=== PATIENT | female | born 2000 | race African-American/Black ===

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

== ENCOUNTER 2018-01-06 17:30 | Observation (INO) | payer MEDICAID ==
[~2018-01-06] VITALS: Ht 167.6 cm; Wt 50.0 kg
[~2018-01-06 17:30] MED LIST: MACR100C2 PO; METR-1 PO
[2018-01-06 17:55] VITALS: BP 107/59; PULSE 115; RESP 16; TEMP 99.3; O2SAT 100
[2018-01-06 21:48] VITALS: BP 113/61; PULSE 102; RESP 18; TEMP 100.1; O2SAT 100
[2018-01-06] MEDS ORDERED: SODIUM CHLOR 0.9% 1000 ML INJ 1,000 ML IV ONE ×2 (22:00→23:45)
[2018-01-06] MEDS ORDERED: AZITHROMYCIN PWD FOR SUSP 1 GM PACKET PO ONE (22:00)
[2018-01-06] MEDS ORDERED: cefTRIAXone INJ 1,000 MG in SODIUM CHLORIDE 0.9% INJ 100 ML IV ONE (22:00)
--- NOTE | 2018-01-06 22:02 | PD ---
HPI Chief Complaint: Bleeding Time Seen by Provider: 21:47 Travel History International Travel<30 days: No Contact w/Intl Traveler<30days: No Traveled to known affect area: No History of Present Illness HPI The patient is an 17 year old female who presents to the [facility] emergency department with a history of heavy vaginal bleeding associated with lower abdominal cramping that began yesterday. The patient is a that was diagnosed with a demise during her last evaluation in the emergency department she reports that she has an appointment scheduled with her AUDIO NARRATOR for January 15, however they were unable to move up the appointment after her evaluation on December 31 in the emergency department. She reports that she has had blood clots associated with her vaginal bleeding. She reports having lightheaded sensation. She denies having any chest pain, chest pressure, or shortness of breath. The patient was diagnosed with bacterial vaginosis and a urinary tract infection and discharged home on metronidazole and it. She reports that she did get the prescriptions filled. Her GC and chlamydia from her pelvic examination were pending at the time of her discharge. From reviewing the electronic medical record her gonorrhea testing was positive. She denies being called by the hospital regarding these results and has not been treated. On arrival the patient has a temp of 100.1 and a sinus tachycardia just above 100. She denies having any known fevers prior to arrival. She denies having any cough or congestion. She denies having any vomiting or diarrhea. She denies having dysuria, urinary frequency, or urinary urgency. Otherwise on review of systems she denies having neck pain or neurologic symptoms. [facility] Past Medical History Narrative Medical The patient's past medical history is reportedly none. The patient's OB history is significant for having an elective 2 years ago, demise diagnosed 12/31/2017. Medical History: Denies Significant Hx ?: Not : 2 Miscarriage: 1 : 1 Past Surgical History Surgical History: No Previous Surgery Social History Alcohol Use: No Tobacco Use: No Substance Use: No Allergies-Medications (Allergen,Severity, Reaction): Coded Allergies: No Known Allergies (Unverified , 12/31/17) Reported Meds & Prescriptions Reported Meds & Active Scripts Active Flagyl (Metronidazole) 500 Mg Tab 500 Mg PO BID 7 Days Macrobid (Nitrofurantoin Monoh/Nitrofur Macro) 100 Mg Cap 100 Mg PO BID 10 Days Review of Systems Except as stated in HPI: all other systems reviewed are Neg General / Constitutional: No: Fever Eyes: No: Visual changes HENT: No: Headaches Cardiovascular: No: Chest Pain or Discomfort Respiratory: No: Shortness of Breath Gastrointestinal: No: Nausea, Vomiting, Diarrhea, Abdominal Pain Genitourinary: Positive: Pelvic Pain, Vaginal Bleeding, No: Dysuria Musculoskeletal: No: Pain Skin: No Rash Neurologic: No: Weakness Psychiatric: No: Depression Endocrine: No: Polydipsia Hematologic/Lymphatic: No: Easy Bruising Physical Exam Narrative General: The patient is a well-developed well-nourished female in no acute distress. Head and Neck exam: Head is normocephalic atraumatic. Eyes: EOMI, pupils are equal round and reactive to light. Nose: Midline septum with pink mucous membranes Mouth: Dentition unremarkable. Moist mucus membranes. Posterior oropharynx is not erythematous. No tonsillar hypertrophy. Uvula midline. Airway patent. Neck: No palpable lymphadenopathy. No nuchal rigidity. No thyromegaly. Cardiovascular: Sinus tachycardia in the low 100s without murmurs, gallops, or rubs. No pulse deficit to the extremities on simultaneous auscultation and palpation of her radial artery. Lungs: Clear to auscultation bilaterally. No wheezes, rhonchi, or rales. Abdomen: Soft, with reported tenderness on palpation of the suprapubic area, no other tenderness on palpation of the other quadrants of the abdomen. No guarding, rebound, or rigidity. Normal bowel sounds are audible. No tenderness on palpation of McBurney's point. Negative Rodriges sign. Extremities: No clubbing, cyanosis, or edema. 2+ pulses in all 4 extremities. No calf tenderness on palpation peer Back: No costovertebral angle tenderness to palpation. Neurologic Exam: Grossly nonfocal. Skin Exam: No rash noted. Intact skin that is warm and dry. Data Data Last Documented VS Vital Signs Date Time Temp Pulse Resp B/P (MAP) Pulse Ox O2 Delivery O2 Flow Rate FiO2 01/06/18 23:55 98.0 105 18 126/63 (84) 100 Room Air Orders Orders Complete Blood Count With Diff (01/06/18 21:49) Basic Metabolic Panel (Bmp) (01/06/18 21:49) Beta Hcg (Quant/Titer) (01/06/18 21:49) Iv Access Insert/Monitor (01/06/18 21:49) Ecg Monitoring (01/06/18 21:49) Oximetry (01/06/18 21:49) Sodium Chlor 0.9% 1000 Ml Inj (Ns 1000 M (01/06/18 22:00) Ceftriaxone Inj (Rocephin Inj) (01/06/18 22:00) Azithromycin Powd Pack (Zithromax Powd P (01/06/18 22:00) Sodium Chlor 0.9% 1000 Ml Inj (Ns 1000 M (01/06/18 23:45) Ed Poc Ultrasound (01/06/18 ) Admit Order (Ed Use Only) (01/07/18 02:08) Labs Laboratory Tests Test 01/06/18 22:05 White Blood Count 14.9 TH/MM3 Red Blood Count 4.78 MIL/MM3 Hemoglobin 11.8 GM/DL Hematocrit 36.7 % Mean Corpuscular Volume 76.9 FL Mean Corpuscular Hemoglobin 24.7 PG Mean Corpuscular Hemoglobin Concent 32.2 % Red Cell Distribution Width 17.4 % Platelet Count 233 TH/MM3 Mean Platelet Volume 8.8 FL Neutrophils (%) (Auto) 79.6 % Lymphocytes (%) (Auto) 10.4 % Monocytes (%) (Auto) 9.5 % Eosinophils (%) (Auto) 0.2 % Basophils (%) (Auto) 0.3 % Neutrophils # (Auto) 11.8 TH/MM3 Lymphocytes # (Auto) 1.5 TH/MM3 Monocytes # (Auto) 1.4 TH/MM3 Eosinophils # (Auto) 0.0 TH/MM3 Basophils # (Auto) 0.0 TH/MM3 CBC Comment DIFF FINAL Differential Comment Blood Urea Nitrogen 6 MG/DL Creatinine 0.75 MG/DL Random Glucose 106 MG/DL Calcium Level 9.0 MG/DL Sodium Level 139 MEQ/L Potassium Level 4.1 MEQ/L Chloride Level 105 MEQ/L Carbon Dioxide Level 22.1 MEQ/L Anion Gap 12 MEQ/L Estimat Glomerular Filtration Rate 120 ML/MIN Human Chorionic Gonadotropin, Quant 909 MIU/ML MDM Medical Decision Making Medical Screen Exam Complete: Yes Emergency Medical Condition: Yes Medical Record Reviewed: Yes Differential Diagnosis Septic , versus PID, versus incomplete miscarriage, versus completed miscarriage Narrative Course During the course of the patient's emergency department visit, the patient's history, examination, and differential diagnosis were reviewed with the patient. The patient was placed on a cardiac sonographer with oximetry and frequent blood pressure monitoring. The patient had IV access obtained and blood work sent for analysis. The patient's electronic medical record was reviewed. The patient's blood type was Rh+, therefore RhoGam was not indicated. The patient' s GC and Chlamydia came back positive for gonorrhea. The patient will be treated for the gonorrhea at this time. Repeat pelvic examination will be done to assess for the level of vaginal bleeding The patient was initially provided normal saline 1 L IV fluid bolus, Rocephin 1 g IV, Zithromax 1 g p.o. x1. The patient's laboratory studies were reviewed and remarkable for a white count of 14.9, hemoglobin 11.8, platelets 233 was 79.6 neutrophils, basic metabolic profile is unremarkable, quantitative beta hCG has decreased down to 909. I talked to Dr. Monroe, the OB hospitalist on-call regarding this patient's case , recent history, physical examination findings, laboratory studies. She is going to evaluate the patient in the emergency department. We will do a point- of-care ultrasound together at that time. A bedside ultrasound was done which revealed what appeared to be retained products of conception. No heart activity. An additional pelvic examination was done by Dr. Monroe. She did recommend continued observation in the hospital. She plans to treat the patient with Cytotec and obtain a formal transvaginal ultrasound. The patient's results were discussed with the patient, including the plan of care. I explained that further testing and/ or monitoring is indicated based on the patient's history, examination, and/ or laboratory findings. Therefore, I recommended admission for additional evaluation. The patient expressed understanding and was agreeable with this plan. The patient was admitted to the hospital in guarded condition and sent to a bed under the care of Dr. Monroe, the AUDIO NARRATOR. Procedures Procedure Narrative Emergency Department Pelvic ultrasound was performed with patient consent. The curvilinear probe was used in the transverse and sagittal views within the suprapubic region revealing taking tissue in the uterus. No heart tones were evident or visible signs of an intrauterine . Physician Communication Physician Communication The patient's case including history, pertinent physical examination findings, and laboratory studies were discussed with Dr. Monroe. It was agreed that the patient would be admitted to the AUDIO NARRATOR's service. Diagnosis Primary Impression: Incomplete Additional Impressions: Gonorrhea Bacterial vaginosis Urinary tract infection Qualified Codes: N39.0 - Urinary tract infection, site not specified Admitting Information Admitting Physician Requests: Observation Kenia Lowry MD Jan 06, 2018 22:02
[2018-01-06 23:05] LABS: AUTOMATED NEUTROPHIL # 11.8 TH/MM3 (1.8-7.7); BASOPHIL % 0.3 % (0.0-2.0); EOSINOPHIL % 0.2 % (0.0-4.0); HEMATOCRIT 36.7 % (35.0-46.0); HEMOGLOBIN 11.8 GM/DL (11.6-15.3); LYMPH % 10.4 % (9.0-44.0); LYMPHOCYTE # 1.5 TH/MM3 (1.0-4.8); MEAN CELL VOLUME 76.9 FL (80.0-100.0); MEAN CORPUSCULAR HEMOGLOBIN 24.7 PG (27.0-34.0); MEAN CORPUSCULAR HGB CONC 32.2 % (32.0-36.0); MEAN PLATELET VOLUME 8.8 FL (7.0-11.0); MONO % 9.5 % (0.0-8.0); MONOCYTE # 1.4 TH/MM3 (0-0.9); NEUT % 79.6 % (16.0-70.0); PLATELET COUNT 233 TH/MM3 (150-450); RED BLOOD COUNT 4.78 MIL/MM3 (4.00-5.30); RED CELL DISTRIBUTION WIDTH 17.4 % (11.6-17.2); WHITE BLOOD COUNT 14.9 TH/MM3 (4.0-11.0)
[2018-01-06 23:21] LABS: BICARBONATE 22.1 MEQ/L (21.0-32.0); CREATININE 0.75 MG/DL (0.50-1.00)
[2018-01-06 23:55] VITALS: BP 126/63; PULSE 105; RESP 18; TEMP 98; O2SAT 100
[2018-01-07] VITALS (8 sets, daily range): BP systolic 89–128; BP diastolic 50–68; PULSE 75–96; RESP 16–20; TEMP 98.3–99.4; O2SAT 95–100
--- NOTE | 2018-01-07 02:37 | PD.CONS ---
HPI Chief Complaint Vaginal bleeding, possible incomplete Travel History International Travel<30 Days: No Contact w/Intl Traveler<30Days: No Known Affected Area: No History of Present Illness HPI The patient is an 17 year old with a known missed at 8 weeks and 5 days who presents to the [facility] emergency department with a history of heavy vaginal bleeding associated with lower abdominal cramping that began yesterday at 5am. There are no aggravating factors and she reports the bleeding is only light now and the cramping has resolved. She reports she was passing clots up to the size of a sushma orange at home. She reports the bleeding has been burgundy but was red at home; she denies any bright red bleeding at this time and reports it is dark. 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 She reported having lightheaded sensation upon arrival to the ED, but this has resolved. She denies having any chest pain , chest pressure, or shortness of breath. The patient was diagnosed with bacterial vaginosis and a urinary tract infection and discharged home on metronidazole and macrobid. She reports that she did get the prescriptions filled. Her GC and chlamydia from her pelvic examination were pending at the time of her previous discharge and her gonorrhea testing was positive as reviewed by Dr. Lowry. The patient denies being called by the hospital regarding these results and had not been treated. She received Rocephin 1g and Zithromax 1g in the ED. On arrival the patient had a temp of 100.1 and a sinus tachycardia just above 100. She denies having any known fevers prior to arrival. She denies any fevers, chills, nausea, or vomiting. She has a normal appetite. She denies any malaise. She reports uterine cramping prior to arrival but denies abdominal pain at this time. She denies having any cough or congestion. She denies having any diarrhea, dysuria, urinary frequency, or urinary urgency. She denies having neck pain or neurologic symptoms. Weeks Gestation: 8 Para: 0 : 2 Last Menstrual Period: Oct 04, 2017 Miscarriage: 0 : 1 History Obstetric History Obstetric History EAB x1 Menarche at 13-14 Menses occur every month and last about 5 days. She denies any prior history of STDs until the Gonorrhea diagnosis. Past Surgical History Narrative Surgical EAB x1 Family History Narrative Family History HTN DM Social History Alcohol Use: No Tobacco Use: No Substance Abuse: No Allergies-Medications (Allergen,Severity, Reaction): Coded Allergies: No Known Allergies (Unverified , 12/31/17) Home Meds Active Scripts Metronidazole (Flagyl) 500 Mg Tab, 500 MG PO BID for Infection for 7 Days, #14 TAB 0 Refills Prov:Kenia Lowry MD 12/31/17 Nitrofurantoin Monohydrate Macrocrystals (Macrobid) 100 Mg Cap, 100 MG PO BID for Infection for 10 Days, #20 CAP 0 Refills Prov:Kenia Lowry MD 12/31/17 Review of Systems Except as stated in HPI: all other systems reviewed are Neg General / Constitutional: No: Fever, Chills Gastrointestinal: No: Nausea, Vomiting, Diarrhea Physical Exam Vital Signs Date Time Temp Pulse Resp B/P (MAP) Pulse Ox O2 Delivery O2 Flow Rate FiO2 01/06/18 23:55 98.0 105 18 126/63 (84) 100 Room Air 01/06/18 21:48 100.1 102 18 113/61 (78) 100 Room Air 01/06/18 17:55 99.3 115 16 107/59 (75) 100 Narrative GENERAL: Well-nourished, well-developed patient. SKIN: Warm and dry. HEAD: Normocephalic and atraumatic. EYES: No scleral icterus. No injection or drainage. ENT: No nasal drainage noted. Mucous membranes pink. Airway patent. NECK: Supple, trachea midline. No JVD. CARDIOVASCULAR: Regular rate and rhythm without murmurs, gallops, or rubs. RESPIRATORY: Breath sounds equal bilaterally. No accessory muscle use. BREASTS: Deferred ABDOMEN/GI: Abdomen soft, non-tender to my examination with bowel sounds present , no rebound, no guarding GENITOURINARY: External Genitalia: intact and normal in appearance. Normal BUS. Speculum examination revealed approximately 15 cc of dark bloody colored discharge with mucus noted. This appeared to be old blood mixed with vaginal discharge. The discharge was not malodorous. There was no active bleeding and the cervical os appeared closed. There are no cervical or vaginal masses noted and grossly normal rugated were noted. On bimanual examination, the patient did not hear to have uterine tenderness or cervical motion tenderness with my examination. EXTREMITIES: No cyanosis or edema. BACK: Nontender without obvious deformity. NEUROLOGICAL/musculoskeletal: Awake and alert. Motor and sensory grossly within normal limits. Grossly normal muscle strength in all muscle groups. Normal speech. Grossly normal range of motion. Psychiatric: Grossly normal memory and affect A [id number], limited transabdominal ultrasound was performed by me at the bedside. The uterus appeared to have some clots and debris within but it was uncertain whether this is clot/debris and/or retained products of conception. Data Data Orders Orders Complete Blood Count With Diff (01/06/18 21:49) Basic Metabolic Panel (Bmp) (01/06/18 21:49) Beta Hcg (Quant/Titer) (01/06/18 21:49) Iv Access Insert/Monitor (01/06/18 21:49) Ecg Monitoring (01/06/18 21:49) Oximetry (01/06/18 21:49) Sodium Chlor 0.9% 1000 Ml Inj (Ns 1000 M (01/06/18 22:00) Ceftriaxone Inj (Rocephin Inj) (01/06/18 22:00) Azithromycin Powd Pack (Zithromax Powd P (01/06/18 22:00) Sodium Chlor 0.9% 1000 Ml Inj (Ns 1000 M (01/06/18 23:45) Ed Poc Ultrasound (01/06/18 ) Admit Order (Ed Use Only) (01/07/18 02:08) Labs Laboratory Tests Test 01/06/18 22:05 White Blood Count 14.9 Red Blood Count 4.78 Hemoglobin 11.8 Hematocrit 36.7 Mean Corpuscular Volume 76.9 Mean Corpuscular Hemoglobin 24.7 Mean Corpuscular Hemoglobin Concent 32.2 Red Cell Distribution Width 17.4 Platelet Count 233 Mean Platelet Volume 8.8 Neutrophils (%) (Auto) 79.6 Lymphocytes (%) (Auto) 10.4 Monocytes (%) (Auto) 9.5 Eosinophils (%) (Auto) 0.2 Basophils (%) (Auto) 0.3 Neutrophils # (Auto) 11.8 Lymphocytes # (Auto) 1.5 Monocytes # (Auto) 1.4 Eosinophils # (Auto) 0.0 Basophils # (Auto) 0.0 CBC Comment DIFF FINAL Differential Comment Blood Urea Nitrogen 6 Creatinine 0.75 Random Glucose 106 Calcium Level 9.0 Sodium Level 139 Potassium Level 4.1 Chloride Level 105 Carbon Dioxide Level 22.1 Anion Gap 12 Estimat Glomerular Filtration Rate 120 Human Chorionic Gonadotropin, Quant 909 MDM Plan Assessment/plan: 1. Incomplete AB of a previous missed AB at 8 weeks and 5 days: Will the patient appears to have an incomplete AB, she has having no active bleeding at this time and is otherwise stable. We discussed medical management versus surgical management. Patient is agreeable to medical management with Cytotec which will be ordered at 600 mg p.o. as per the WHO guidelines. The patient is aware that should she start to bleed extremely heavily during this process or should she fail to complete the AB she would require a dilation and curettage. The risks, benefits, and alternatives to dilation and curettage were discussed at length including but not limited to pain, infection, bleeding, need for repeat operation, and need for blood transfusion, injury to other organs like the bladder/bowel/nerves/vessels, failure to remove all products of conception, uterine scarring, and uterine perforation. We discussed that while it is extremely unlikely, there is a risk of requiring hysterectomy should she have bleeding that does not stop and the possibility of requiring a diagnostic laparoscopy if uterine perforation were to occur. All the patient's questions were answered and consent was signed. We will admit her to [facility] for 23 hour observation, administer Cytotec 600 mg p.o., and obtain a formal ultrasound later today karissa evaluate for completion of Ab after we have had a trial of Cytotec to medically evacuate clots/debris/products of conception. There is no evidence of a septic at this time. While the patient has a mild leukocytosis, she continues to be afebrile and did not appear to be tender or have purulent discharge upon my examination. In addition there is no malodorous discharge or other symptoms of sepsis. The patient received Rocephin 1 g IV and Zithromax 1 g p.o. We will add doxycycline 100 mg p.o. every 12 hours. 2. Gonorrhea: As above the patient received Rocephin 1 g IV and azithromycin 1 g p.o. as treatment 3. Bacterial vaginosis: The patient was sent home at her previous visit with Flagyl 500 mg p.o. twice daily for BV. 4. UTI: The patient was treated with Macrobid for UTI. In addition she received Rocephin 1 g in the ED. 5. Rh+ Admitting diagnosis: Incomplete AB, Gonorrhea Lindsay Monroe MD Jan 07, 2018 02:37
[2018-01-07] MEDS ORDERED: MAGNESIUM HYDROXIDE SUSP 30 ML CUP PO PRN (02:45)
[2018-01-07] MEDS ORDERED: MORPHINE SULFATE 4 MG/ML INJ IV PUSH PRN (02:45)
[2018-01-07] MEDS ORDERED: BISACODYL 10 MG SUPP RECTAL PRN (02:45)
[2018-01-07] MEDS ORDERED: SODIUM CHLORIDE 0.9% FLUSH 10 ML FLUSH IV FLUSH PRN (02:45)
[2018-01-07] MEDS ORDERED: MISOPROSTOL 100 MCG TAB PO ONE (02:45)
[2018-01-07] MEDS ORDERED: oxyCODONE/ACETAMINOPHEN 10 MG/325 MG TAB PO PRN (02:45)
[2018-01-07] MEDS ORDERED: LACTULOSE SYRUP 20 GM/30 ML CUP PO PRN (02:45)
[2018-01-07] MEDS ORDERED: SENNOSIDES 8.6 MG TAB PO PRN (02:45)
[2018-01-07] MEDS ORDERED: oxyCODONE/ACETAMINOPHEN 5 MG/325 MG TAB PO PRN (02:45)
[2018-01-07] MEDS ORDERED: NALOXONE HCL 0.4 MG/ML AMP IV PUSH PRN (02:45)
[2018-01-07] MEDS: LACTATED RINGER'S 1000 ML INJ 1,000 ML IV SCH ×3 (04:22→18:45)
[2018-01-07] MEDS: DOCUSATE SODIUM 50 MG/SENNA 8.6 MG TAB PO SCH ×2 (09:00→21:00)
[2018-01-07] MEDS: SODIUM CHLORIDE 0.9% FLUSH 10 ML FLUSH IV FLUSH SCH ×2 (09:00→21:00)
[2018-01-07] MEDS: DOXYCYCLINE HYCLATE 100 MG TAB PO SCH ×2 (09:35→22:03)
--- NOTE | 2018-01-07 10:11 | HHI.PR ---
Subjective Remarks [employer] ANN[employer]NCEMENTS progress note: Patient evaluated this morning. Is resting in bed comfortably. No further bleeding, she does report some cramping after the cytotec. Otherwise no pain or concerns. Received cytotec 0400 on 01/07 - will consider transvaginal ultrasound 12 hours out from cytotec. Continue Doxycycline BID SDW Dr. Monroe Objective Vital Signs Date Time Temp Pulse Resp B/P (MAP) Pulse Ox O2 Delivery O2 Flow Rate FiO2 01/07/18 08:43 98 21 01/07/18 07:26 99.3 88 16 95/50 (65) 98 01/07/18 06:06 99.4 95 16 128/54 (78) 99 01/07/18 03:26 98.7 85 16 116/68 (84) 100 01/06/18 23:55 98.0 105 18 126/63 (84) 100 Room Air 01/06/18 21:48 100.1 102 18 113/61 (78) 100 Room Air 01/06/18 17:55 99.3 115 16 107/59 (75) 100 I/O 01/06/18 01/06/18 01/06/18 01/07/18 01/07/18 01/07/18 07:00 15:00 23:00 07:00 15:00 23:00 Intake Total 2100 ml Balance 2100 ml Intake IV Total 2100 ml Result Diagram: 01/06/18220401/06/182204 Assessment and Plan Physician Attestation I personally saw and examined patient and participated in all ambrocio decision making. Patient was admitted for threatened Ab/failed vs inomplete Ab. Patient reports cramping overnight, denies significant bleeding. Continue current plan. [facility] Blair Balbuena MD R1 Jan 07, 2018 10:11 Lindsay Monroe MD Jan 16, 2018 13:22
[2018-01-07] MEDS ORDERED: cefTRIAXone INJ 1,000 MG in SODIUM CHLORIDE 0.9% INJ 100 ML IV SCH (14:00)
--- NOTE | 2018-01-07 16:38 | RADRPT ---
EXAM DATE: 01/07/2018 3:17 PM EDT AGE/SEX: 17 years / Female INDICATIONS: Follow up on recent demise. Bleeding. CLINICAL DATA: This is the patient's subsequent encounter. Patient reports that signs and symptoms h ave been present for 1 week and indicates a pain score of 2/10. MEDICAL/SURGICAL HISTORY: . 8 week demise, 12/31/17. . None. COMPARISON: No prior exams available for comparison. TECHNIQUE: Real-time ultrasound of the pelvis was performed using an endovaginal transducer. [facility] [place]ASUREMENTS (cm x cm x cm): Uterus:__Measures 10.6 x 6.5 x 6.7 cm Endometrial Stripe:__>20 mm Right Ovary:__Measures 3.98 x 1.6 x 1.9 cm Left Ovary:__Measures 3.1 x 2.6 x 1.7 cm FINDINGS: Uterus: Heterogeneous thickening of the endometrium is identified centrally within the uterus which may represent hemorrhage or retained products of conception. Right Ovary: Unremarkable without evidence of cystic or solid lesions. Left Ovary: Unremarkable without evidence of cystic or solid lesions Other: Free fluid is identified in the cul-de-sac. CONCLUSION: 1. Thickened heterogeneous endometrium characteristic of either hemorrhagic products or retained pro ducts of conception. 2. Small amount of fluid in the cul-de-sac. 3. Normal-appearing ovaries. Electronically signed by: Delvin Aparicio MD 01/07/2018 4:37 PM EDT
--- NOTE | 2018-01-07 19:49 | HHI.PR ---
Subjective Remarks Pt with incomplete spont AB has had heavy bleeding but that has slowed , no pain US done today showed POC in lower uterine segment trying to pass thru the cx Exam - speculum confirms that assessment , there is a large tissue mass at the ext os -- ring forceps used to remove 7 cm long 5 cm wide tissue mass consistent with POC Imp- Incomplete AB , uterus now evacuated Plan - D/C on po motrin , follow up with out pt provider , BT - A+ Objective Vital Signs Date Time Temp Pulse Resp B/P (MAP) Pulse Ox O2 Delivery O2 Flow Rate FiO2 01/07/18 18:05 88 16 109/63 (78) 98 01/07/18 15:49 98.3 75 20 104/57 (73) 100 01/07/18 11:23 98.5 84 16 89/51 (64) 95 01/07/18 08:43 98 21 01/07/18 07:26 99.3 88 16 95/50 (65) 98 01/07/18 06:06 99.4 95 16 128/54 (78) 99 01/07/18 03:26 98.7 85 16 116/68 (84) 100 01/06/18 23:55 98.0 105 18 126/63 (84) 100 Room Air 01/06/18 21:48 100.1 102 18 113/61 (78) 100 Room Air I/O 01/06/18 01/06/18 01/06/18 01/07/18 01/07/18 01/07/18 07:00 15:00 23:00 07:00 15:00 23:00 Intake Total 2100 ml 1100 ml Balance 2100 ml 1100 ml Intake IV Total 2100 ml 1100 ml # Voids 1 # Sanitary Pads 1 Pads 1 Pads Result Diagram: 01/06/18220401/06/182204 Assessment and Plan Assessment and Plan Incomplete AB -- now evacuated Plan po pain meds [NSAIDs] D/C home Brooks Jesus II, MD Jan 07, 2018 19:49
[2018-01-07] MEDS ORDERED: DOXY100T PO (19:55)
[2018-01-07] MEDS ORDERED: IBUP-232 PO (19:57)
--- NOTE | 2018-01-07 19:58 | HHI.DCPOC ---
Discharge Care Plan Report Symptoms to Your Doctor -Temperature above 100.5 degrees -Redness, of incision or excessive or foul smelling drainage -Unusual pain or calf pain -Increased vaginal bleeding -Painful or difficulty urinating -Feelings of extreme sadness or anxiety after 2 weeks Goals to Promote Your Health * To prevent worsening of your condition and complications * To maintain your health at the optimal level Directions to Meet Your Goals Take your medications as prescribed Follow your dietary instruction Follow activity as directed Ensure plenty of rest for recovery Drink fluids for hydration Keep your appointments as scheduled Take your immunizations and boosters as scheduled If your symptoms worsen call your PCP, if no PCP go to Urgent Care Center or Emergency Room Smoking is Dangerous to Your Health. Avoid second hand smoke Call the 24-hour crisis hotline for domestic abuse at Brooks Jesus II, MD Jan 07, 2018 19:58
== END 2018-01-07 22:46 | disposition home or self-care (01) ==
LOC: NEPE 17:30 → NEDA 01-07 02:10 → NEPGCP 01-07 03:15
PROVIDERS: ADMIT Obstetrics & Gynecology; ATTEND Obstetrics & Gynecology
DX: O03.38 Urinary tract infection following incomplete spontaneous abortion (principal); O03.0 Genital tract and pelvic infection following incomplete spontaneous abortion; N76.0 Acute vaginitis; B96.89 Other specified bacterial agents as the cause of diseases classified elsewhere; Z3A.08 8 weeks gestation of pregnancy
CPT/HCPCS: 76801; 76817; 80048; 84702; 85025; 88305; 96361; 96365; 96376; 99285; G0378; J0696; J7030; J7120